=== PATIENT | male | born 1975 | race Caucasian/White ===

== ENCOUNTER 2021-03-26 20:06 | Emergency (ER) | payer OTHER ==
[2021-03-26 20:12] VITALS: RESP 18; TEMP 98
[2021-03-26] MEDS ORDERED: HYDROmorphone 1 MG/ML 1 ML SYRINGE IM STA (20:30)
[2021-03-26] MEDS ORDERED: LIDOCAINE 5% PATCH TOPICAL STA (20:31)
[2021-03-26] MEDS ORDERED: KETOROLAC 15 MG/ML 1 ML VIAL IM STA (20:31)
[2021-03-26] MEDS ORDERED: ONDANSETRON ODT 4 MG TAB PO STA (20:31)
--- NOTE | 2021-03-26 20:58 | XR ---
EXAMINATION TYPE: XR ribs RT w pa chest xray DATE OF EXAM: 03/26/2021 COMPARISON: NONE HISTORY: Pain TECHNIQUE: 5 views FINDINGS: Heart is normal. Lungs are clear of consolidation. There is no pleural effusion or pneumoth orax. There are fractures of the right posterior lateral sixth and seventh ribs. There is significant displacement of the seventh rib fracture. Margins are somewhat indistinct and this is probably not a n acute fracture. IMPRESSION: No active cardiopulmonary disease. Healing right-sided rib fractures.
--- NOTE | 2021-03-26 21:25 | ED ---
General Adult HPI - General Chief complaint: Back Pain/Injury Stated complaint: Chest Pain Time Seen by Provider: 03/26/21 20:13 Source: patient Mode of arrival: ambulatory Limitations: no limitations - History of Present Illness Initial comments: 48 year-old male patient is brought to the emergency department for evaluation of right rib pain. Patient states that he had a coughing episode while smoking marijuana and he started to have sharp pain to the right ribs. Patient had a rib injury about 7 weeks ago and was told that he had an intercostal tear. States he was feeling better until the coughing episode tonight. He reports pain with inspiration. No hemoptysis or persistent cough. Denies any fall or new injury. Patient denies any headache, neck pain, back pain, chest pain, shortness of breath, dizziness, weakness, abdominal pain, nausea, vomiting, or difficulties with bowel movements or urination. - Related Data Previous Rx's Medication Instructions Recorded HYDROcodone/APAP 5-325MG [[place] 5] 1 each PO Q6HR PRN #12 tab 03/26/21 Ibuprofen [Motrin] 600 mg PO Q8HR PRN #30 tab 03/26/21 Lidocaine 5% Patch [Lidoderm] 1 patch TOPICAL DAILY #30 patch 03/26/21 Allergies Allergy/AdvReac Type Severity Reaction Status Date / Time tramadol Allergy Vomiting Verified 03/26/21 20:12 Review of Systems ROS Statement: Those systems with pertinent positive or pertinent negative responses have been documented in the HPI. ROS Other: All systems not noted in ROS Statement are negative. Past Medical History Past Medical History: Hypertension Additional Past Medical History / Comment(s): PTSD, traumatic brain issue, conrad and conrad covid vaccine. History of Any Multi-Drug Resistant Organisms: None Reported Past Surgical History: Orthopedic Surgery Additional Past Surgical History / Comment(s): left knee fracture Past Psychological History: Anxiety, Depression, PTSD Smoking Status: Never smoker Past Alcohol Use History: Occasional Past Drug Use History: Marijuana General Exam Limitations: no limitations General appearance: alert, in no apparent distress, other (Physical well- developed, well-nourished adult male patient in no acute distress. Vital signs upon presentation are temperature 98.0F, pulse 75, respirations 18, blood pressure 106/82, pulse ox 98% on room air.) Eye exam: Present: normal appearance, PERRL, EOMI. Absent: scleral icterus, conjunctival injection, periorbital swelling ENT exam: Present: normal exam, normal oropharynx, mucous membranes moist Respiratory exam: Present: normal lung sounds bilaterally, chest wall tenderness (Right lateral chest wall). Absent: respiratory distress, wheezes, rales, rhonchi, stridor Cardiovascular Exam: Present: regular rate, normal rhythm, normal heart sounds. Absent: systolic murmur, diastolic murmur, rubs, gallop, clicks GI/Abdominal exam: Present: soft, normal bowel sounds. Absent: distended, tenderness, guarding, rebound, rigid Neurological exam: Present: alert, oriented X3, CN II-XII intact Psychiatric exam: Present: normal affect, normal mood Skin exam: Present: warm, dry, intact, normal color. Absent: rash Course Vital Signs 03/26/21 20:08 Temperature 98.0 F Pulse Rate 75 Respiratory 18 Rate Blood Pressure 156/82 O2 Sat by Pulse 98 Oximetry Medical Decision Making - Medical Decision Making 45-year-old male patient presents to the emergency department today for evaluation of right rib pain that started after coughing episode. He did have right rib injury about 7 weeks ago. Physical examination did reveal tenderness over the right lateral ribs. X-ray did reveal sixth and seventh rib fracture. The seventh rib is displaced and does appear acute. He is given pain medication. Given incentive spirometer and education. Did discuss findings and results with him. Be discharged follow-up with orthopedics in his primary care physician for recheck in 1-2 days. Return parameters were discussed in detail. He verbalizes understanding and agrees with this plan. My attending is Dr. Martinez. Disposition Clinical Impression: Multiple fractures of ribs of right side Disposition: HOME SELF-CARE Condition: Good Instructions (If sedation given, give patient instructions): Rib Fracture (ED) Additional Instructions: Apply ice to the right ribs, splint for coughing and deep breathing. Use medications as directed. Follow up with orthopedics for further evaluation as soon as possible. Return for any new, worsening, or concerning symptoms. Prescriptions: Lidocaine 5% Patch [Lidoderm] 1 patch TOPICAL DAILY #30 patch Ibuprofen [Motrin] 600 mg PO Q8HR PRN #30 tab PRN Reason: Pain HYDROcodone/APAP 5-325MG [[place] 5] 1 each PO Q6HR PRN #12 tab PRN Reason: Pain Is patient prescribed a controlled substance at d/c from ED?: No Referrals: Orion Ceron MD [STAFF PHYSICIAN] - 1-2 days Time of Disposition: 21:25
[2021-03-26 22:00] VITALS: BP 138/78; PULSE 82
== END 2021-03-26 22:00 | disposition home or self-care (01) ==
LOC: EC 20:06
DX: S22.41XA Multiple fractures of ribs, right side, initial encounter for closed fracture (principal); R05 Cough; I10 Essential (primary) hypertension; F41.9 Anxiety disorder, unspecified; F32.9 Major depressive disorder, single episode, unspecified; F12.90 Cannabis use, unspecified, uncomplicated; X58.XXXA Exposure to other specified factors, initial encounter
CPT/HCPCS: 71101; 99285; 96372 ×2; J1170; J1885